=== PATIENT | male | born 1970 | race Caucasian/White ===

== ENCOUNTER 2024-04-06 17:01 | Emergency (ER) | payer MEDICAID, SELFPAY ==
[2024-04-06 17:02] VITALS: BMI 21.4
[2024-04-06 17:49] VITALS: BP 112/81; PULSE 84; RESP 18; TEMP 36.7; O2SAT 96
--- NOTE | 2024-04-06 18:17 | XR_ITS ---
Examination: PA lateral chest 2 views Technique: Upright PA lateral chest 2 views Exam date and time: April 06, 2024 1836 hrs. Indications: Coughing beginning 3 days ago. Findings: Normal heart size Mild accentuation basilar bronchovascular markings No lobar pneumonia Impression: Basilar bronchitis pattern
--- NOTE | 2024-04-06 18:18 | EDNOTE_ITS ---
<Statement entered by Daja Beth MD - 04/07/24 22:05> As co-signing physician, I was present and available for consult prn. I concur with the plan and care as documented by the midlevel provider. Upper Respiratory Inf. RME/HPI General Chief Complaint: Flu Like Symptoms Stated Complaint: PAIN ALL OVER BODY AND JOINTS X4D WITH VOMITING Time Seen by Provider: 04/06/24 17:47 Source: patient Arrival date/time: 04/06/24 17:01 54-year-old male with past medical history of deaf presents emergency department complaining of generalized bodyaches and cough that is been ongoing for 4 days. Patient reports was taken ibuprofen and help with symptoms but has ran out and is also requesting refill. casting cleaner was used. Mode of arrival: ambulatory Limitations: language barrier Related Data Previous Rx's ?Medication ?Instructions ?Recorded ibuprofen 800 mg tablet 800 mg PO TID PRN fever or pain 04/06/24 #30 tabs Allergies Allergy/AdvReac Type Severity Reaction Status Date / Time No Known Allergies Allergy Verified 04/06/24 17:05 Review of Systems Review of Systems Systems Reviewed: All systems reviewed, normal except as documented Constitutional Constitutional: Reports system reviewed and no additional complaints, except as documented, Reports body ache(s), Denies chills and Denies fever(s) Eyes Eyes: Reports system reviewed and no additional complaints, except as documented and Denies change in vision ENT Ears, Nose, Mouth, and Throat: Reports system reviewed and no additional complaints, except as documented, Denies disequilibrium, Denies dizziness, Denies sore throat and Denies vertigo Cardiovascular Cardiovascular: Reports system reviewed and no additional complaints, except as documented, Denies chest pain and Denies dyspnea Respiratory Respiratory: Reports system reviewed and no additional complaints, except as documented, Denies chest congestion, Reports cough and Denies dyspnea Gastrointestinal Gastrointestinal: Reports system reviewed and no additional complaints, except as documented, Denies abdominal pain, Denies nausea and Denies vomiting Musculoskeletal Musculoskeletal: Reports system reviewed and no additional complaints, except as documented, Denies abnormal gait and Denies arthralgias Integumentary/Breasts Skin/Breast: Reports system reviewed and no additional complaints, except as documented, Denies erythema, Denies rash and Denies wounds Neurologic Neurologic: Reports system reviewed and no additional complaints, except as documented, Denies abnormal gait, Denies disequilibrium, Denies dizziness and Denies vertigo Past Medical History Social History SMOKING STATUS: Unknown if ever smoked ED Exam General Limitations: Present language barrier General appearance: Present alert and in no apparent distress Head Head exam: Present atraumatic Eye Eye exam: Present normal appearance, PERRL and EOMI ENT ENT exam: Present normal exam, normal oropharynx and mucous membranes moist Neck Neck exam: Present normal inspection, full ROM and trachea midline Chest Chest inspection: Present normal inspection and symmetric chest wall rise Respiratory Respiratory exam: Present normal lung sounds bilaterally Cardiovascular Cardiovascular exam: Present regular rate, normal rhythm and normal heart sounds Abdominal Exam Abdominal exam: Present soft and normal bowel sounds Extremities Exam Extremities exam: Present normal inspection and full ROM Back Exam Back exam: Present normal inspection and full ROM Neurological Exam Neurological exam: Present alert, oriented X3 and CN II-XII intact Psychiatric Psychiatric exam: Present normal affect and normal mood Skin Skin exam: Present warm, dry, intact and normal color Course Quality Measures none Orders Category Date Time Status Bedside COVID-19 Antigen Test NOW Care 04/06/24 18:17 Completed Bedside Influenza A&B Antigen Test NOW Care 04/06/24 18:17 Completed XR chest 2V Stat Exams 04/06/24 18:17 Completed Strep A Rapid Stat Lab 04/06/24 18:21 Completed Ibuprofen Tab [Motrin Tab] Med 04/06/24 18:18 Discontinued 800 mg PO X1 ONE Vital Signs Vital signs: Vital Signs Temperature 98.0 F 04/06/24 17:49 Pulse Rate 84 04/06/24 17:49 Respiratory Rate 18 04/06/24 17:49 Blood Pressure 112/81 04/06/24 17:49 Pulse Oximetry (%) 96 04/06/24 17:49 Oxygen Delivery Method Room Air 04/06/24 17:49 96% room air within normal limits Upper Respiratory Infection MDM Narrative MDM Narrative:: 54-year-old male with past medical history of deaf presents emergency department complaining of generalized bodyaches and cough that is been ongoing for 4 days. Patient reports was taken ibuprofen and help with symptoms but has ran out and is also requesting refill. casting cleaner was used. Patient appears nontoxic and hemodynamically stable. No adventitious lung sounds on auscultation. Chest x-ray was negative for any pneumonic infiltrates. Patient discharged to follow-up with primary care provider and return to emergency department for any worsening symptoms or as needed. Patient data External records reviewed:: [facility] previous records Clinical information provided by:: patient Social determinants that could affect healthcare access:: none Patient has the following chronic illnesses:: See chart How is presenting disease/condition affected by chronic disease/condition?: uneffected by Evaluation data The following diagnostics were reviewed and interpreted by me:: radiology exam(s) Lab and/or radiology exams considered but not ordered:: Ordered Interpretation Summary: Interpreted by me Medications / Prescriptions Medications or Prescriptions considered but not ordered:: Ordered Medication administrations:: Medication Administration History Discontinued Medications Ibuprofen (Ibuprofen Tab 400 Mg Tablet) 800 mg PO X1 ONE Stop: 04/06/24 18:19 Last Admin: 04/06/24 18:57 Dose: 800 mg Documented By: Given Consultations Consultation(s) initiated? (list below): No Diagnosis Upper Respiratory Differential Diagnosis: upper respiratory infection, otitis media, sinusitis, viral infection, bronchitis, influenza and pharyngitis Most likely diagnosis given after review of the tests above:: Acute viral bronchitis Admission Indicated Admission indicated?: not indicated Admission Request Was there a request for admission?: No Disposition Plan Disposition Plan: Discharge Discharge Attestation Discharge Attestation: The patient and all family members were given an opportunity to ask questions and understood the discharge instructions. Discharge instructions specifically effects, indications for sooner follow up or return to the emergency department, and the expected course of current diagnosis. Patient condition: Stable Discharge Plan Plan Patient Disposition: HOME (Self Care) Disposition Comment: Stable Prescriptions/Referrals Prescriptions/Med Rec: New ibuprofen 800 mg tablet 800 mg PO TID PRN (Reason: fever or pain) Qty: 30 0RF Referrals: No Primary/Family,Physician [Primary Care Provider] - In 1 week Problem List Clinical Impression: Acute viral bronchitis Patient/Caregiver Discharge Instructions Discharge Activity: activity as tolerated Education Materials: ED Bronchitis, No Antibiotic (Adult) Additional Instructions: Take medication as prescribed. Follow-up with primary care provider in 2 to 3 days. Return to emergency department for any worsening symptoms or as needed. Print Language: Kinyarwanda Stand Alone Forms: Rosanna Award Info., Patient Portal Info Letter PA/JOSE CRUZ Supervising Physician PA/JOSE CRUZ Supervising Physician: Dr. Beth
[2024-04-06] MEDS: IBUPROFEN TAB 400 MG TABLET 800 MG PO (18:57)
[2024-04-06 18:59] LABS: Strep A Rapid Negative (Negative)
[2024-04-06 20:15] VITALS: RESP 18
== END 2024-04-06 20:17 | disposition home or self-care (01) ==
PROVIDERS: Emergency Provider Emergency Medicine
DX: J20.8 Acute bronchitis due to other specified organisms (principal); B97.89 Other viral agents as the cause of diseases classified elsewhere
CPT/HCPCS: 71046; 87400; 87651; 87811; 99283; A9270

== ENCOUNTER 2024-04-17 07:27 | Emergency (ER) | payer MEDICAID, SELFPAY ==
[2024-04-17] VITALS (127 sets, daily range): BP systolic 0–179; BP diastolic 0–151; PULSE 104–147; RESP 14–54; TEMP 34.4–36.7; O2SAT 21–100; BMI 22.0
--- NOTE | 2024-04-17 07:33 | PD.EDABDPN ---
ED Abdominal Pain RME/HPI General Chief Complaint: Abdominal Pain Stated complaint: ABDOMINAL PAIN Time seen by provider: 04/17/24 07:33 Arrival date/time: 04/17/24 07:27 RME / HPI RME / HPI narrative: This section includes all my notes and documentations, including HPI, PE, and ED course. Justin Bowens MD HPI: 54-year-old male here with severe abdominal pain. Obtaining detailed history is difficult because he is deaf. He reports diffuse pain for several days, severely worse today. With vomiting. No obvious fever. No other complaints. ROS: All negative except as documented in HPI. Physical Exam: General: Alert and oriented. In severe pain. Eyes: Conjunctivae and lids clear. ENT: No nasal congestion. Neck: Supple. Sinus tachycardia noted. Heart: RRR. Lungs: No respiratory distress. Good air movement. No rhonchi, wheezing, rales. Abdomen: Severe diffuse tenderness noted. Absent bowel sounds. Severe distention noted with rebound and guarding. Large vertical scars noted from previous surgeries. Large vertical laparotomy scarring noted. Skin: Warm and dry. Neuro: Alert and oriented X 3. I reviewed EMS notes. I reviewed all diagnostic test results. My interpretation of the EKG is sinus rhythm with nonspecific ST-T changes. My interpretation of the chest x-ray is no acute findings. My review of the abdominal CT report is: Abnormal small bowel loops, distended with air droplets in the bond of the small bowel loops and findings suspicious for pneumoperitoneum. Differential would include bowel obstruction, ischemic bowel, recommend surgical consultation. Blood tests and urine tests remarkable for WBC 20.7, Hgb 14.6, Cr 2.8, lactic acid 6.2, CRP 27.1, procalcitonin 8.31. At this point, diagnoses include pneumoperitoneum, SBO with obvious perforation, sepsis. I was asked by the nursing staff for central line placement due to IV access difficulty, see procedure note. Treatment here included IV fluid, Zosyn, Dilaudid, and Levophed. I discussed the case with our surgeon (Dr. Beckwith). About the presentation and exam and diagnostics and treatments here. And need of further care in the hospital. Declined to accept the patient. Recommended transfer to another facility, preferably where he had his previous abdominal surgeries. Our transfer nurse tried all day to find a facility to take care of the patient but unsuccessful during my watch. Couldn't find the facility that performed the patient's past abdominal surgeries. And most facilities declined to accept the transfer due to transfer being lateral transfer and not higher level transfer. I discussed the case with our surgeon (Dr. Beckwith) again. About the presentation and exam and diagnostics and treatments here. And need of further care here because other facilities are not accepting the patient for transfer. Patient will probably even with urgent abdominal surgery. But asked our surgeon to give him a chance. Declined to accept the patient again. At 6 PM on 04/17/24, the care of the patient was transferred to Dr. Beth (she will call Dr. Beckwith and ask him to perform emergent operation). At the time of transfer of care, patient is alert and oriented with no respiratory distress and significant improvement of pain. This entire documentation contains medications given (and diagnostics performed) after my watch, during Dr. Beth's shift. Justin Bowens MD Related Data Previous Rx's ?Medication ?Instructions ?Recorded ibuprofen 800 mg tablet 800 mg PO TID PRN fever or pain 04/06/24 #30 tabs Allergies Allergy/AdvReac Type Severity Reaction Status Date / Time No Known Allergies Allergy Verified 04/06/24 17:05 Course Quality Measures none Orders Category Date Time Status COVID-19 Screening Questionnaire NOW Care 04/17/24 11:[address] Screening NOW Care 04/17/24 07:35 Completed Decision to Admit X1 Care 04/17/24 11:33 Completed EKG (ED ONLY) *Do not use* NOW Care 04/17/24 07:46 Completed Emergency Titration Protocol Stat Care 04/17/24 16:32 Ordered Bello [Urinary Catheter] QS Care 04/17/24 18:00 Completed Insert NG / OG tube NOW Care 04/17/24 12:17 Completed Saline [Insert IV] NOW Care 04/17/24 07:35 Completed Straight [In and Out Catheter] X1 Care 04/17/24 10:16 Completed Transfuse,blood/blood products NOW Care 04/17/24 18:08 Completed Consult to General Surgery Stat Cons 04/17/24 11:23 Ordered Referral - Mass Spectrometry Specialist Stat Cons 04/17/24 11:[address] abdomen pelvis wo con Stat Exams 04/17/24 09:[address] abdomen pelvis wo con Stat Exams 04/17/24 21:17 Completed EKG (ED Only) Stat Exams 04/17/24 07:46 Draft XR chest 1V portable Stat Exams 04/17/24 23:08 Completed XR chest 1V post procedure Stat Exams 04/17/24 10:16 Completed Amylase Stat Lab 04/17/24 08:28 Completed Blood Culture (Lab) Stat Lab 04/17/24 10:40 Completed CBC Stat Lab 04/17/24 08:28 Completed CBC Stat Lab 04/17/24 21:28 Completed CMP [Comprehensive Metabolic Panel] Stat Lab 04/17/24 08:28 Completed CMP [Comprehensive Metabolic Panel] Stat Lab 04/17/24 21:28 Completed CRP [C-Reactive Protein] Stat Lab 04/17/24 11:03 Completed ESR [Sed Rate (ESR)] Stat Lab 04/17/24 11:03 Completed FFP [Fresh Frozen Plasma] Stat Lab 04/17/24 15:23 Completed Hemoglobin and Hematocrit Stat Lab 04/17/24 14:21 Completed Hemoglobin and Hematocrit Stat Lab 04/17/24 16:50 Completed Lactate (Lactic Acid) Stat Lab 04/17/24 11:03 Completed Lactate (Lactic Acid) Stat Lab 04/17/24 21:28 Completed Lactic Acid, 3 HR Stat Lab 04/17/24 14:21 Completed Lipase Stat Lab 04/17/24 08:28 Completed Magnesium Stat Lab 04/17/24 08:28 Completed Procalcitonin Stat Lab 04/17/24 11:03 Completed Procalcitonin Stat Lab 04/17/24 21:28 Completed Red Blood Cells Stat Lab 04/17/24 15:23 Completed Type and Screen Stat Lab 04/17/24 15:23 Completed UA [Urinalysis] Stat Lab 04/17/24 10:03 Completed Amiodarone Inj [Cordarone Inj] Med 04/18/24 00:46 Discontinued 300 mg IV .STK-MED ONE Calcium Chloride 10% Abboject Med 04/18/24 00:46 Discontinued 10 ml IV .STK-MED ONE Calcium Gluc/Ns 1000MG Ivpb [Calcium Gluc/Ns 1000mg Med 04/17/24 22:54 Discontinued Ivpb] 1,000 mg in 50 ml IV X1 Dextrose 10%-Water [D10w] 500 ml Med 04/17/24 22:00 Discontinued IV 500 mls/hr Dextrose 10%-Water [D10w] 500 ml Med 04/17/24 22:12 Discontinued IV 999 mls/hr Dextrose 50% Syr [D50w Syringe Abboject] Med 04/17/24 22:59 Discontinued 50 ml IV X1 ONE EPINEPHrine Inj Abboject Med 04/18/24 00:46 Discontinued 5 mg .ROUTE .STK-MED ONE Famotidine Inj [Pepcid Inj] Med 04/17/24 17:02 Discontinued 20 mg IVP X1 ONE HYDROmorphone INJ [Dilaudid Inj] Med 04/17/24 11:33 Discontinued 2 mg IM X1 ONE HYDROmorphone INJ [Dilaudid Inj] Med 04/17/24 16:10 Discontinued 2 mg IM X1 ONE HYDROmorphone INJ [Dilaudid Inj] Med 04/17/24 12:06 Discontinued 2 mg IVP X1 ONE Insulin Regular Med 04/17/24 22:59 Discontinued 5 unit IV X1 ONE Ketorolac Inj [Toradol Inj] Med 04/17/24 07:34 Discontinued 30 mg IVP X1 ONE LORazepam [Ativan Inj] Med 04/17/24 18:22 Discontinued 1 mg IVP X1 ONE Lidocaine 1% 20 ml [Xylocaine 1% 20 ML] Med 04/18/24 00:14 Discontinued 20 ml INFL X1 ONE Morphine Inj Med 04/17/24 07:34 Discontinued 6 mg IVP X1 ONE Norepinephrine/D5W 8mg/250ml [Levophed in D5W 8mg/250ml Med 04/17/24 11:33 Discontinued ] 8 mg in 250 ml IV .STK-MED Norepinephrine/D5W 8mg/250ml [Levophed in D5W 8mg/250ml Med 04/17/24 11:54 Discontinued ] 8 mg in 250 ml IV 0.05 mcg/kg/min Norepinephrine/NS 16mg/250ml [Levophed in NS 16mg/250ml Med 04/17/24 19:47 Discontinued ] 16 mg in 250 ml IV .STK-MED Norepinephrine/NS 16mg/250ml [Levophed in NS 16mg/250ml Med 04/17/24 10:07 Discontinued ] 16 mg in 250 ml IV 0.05 mcg/kg/min Norepinephrine/NS 16mg/250ml [Levophed in NS 16mg/250ml Med 04/17/24 19:51 Discontinued ] 16 mg in 250 ml IV 0.05 mcg/kg/min Octreotide Acet Inj [SandoSTATIN Inj] Med 04/17/24 17:03 Discontinued 50 mcg IV X1 ONE Ondansetron Inj [Zofran Inj] Med 04/17/24 07:34 Discontinued 4 mg IV X1 ONE Pantoprazole Inj [Protonix Inj] Med 04/17/24 17:02 Discontinued 80 mg IV X1 ONE Pantoprazole/Ns 80Mg IV Premix [Protonix/NS 80mg IV Med 04/17/24 21:14 Discontinued Premix] 80 mg in 100 ml IV X1 Piper/Tazo Inj [Zosyn Inj] 3.375 gm Med 04/17/24 10:08 Discontinued Sodium Chloride 0.9% (P) [Ns 0.9% (P)] 50 ml IV X1 Piper/Tazo Inj [Zosyn Inj] 3.375 gm Med 04/17/24 16:10 Discontinued Sodium Chloride 0.9% (P) [Ns 0.9% (P)] 50 ml IV X1 Sodium Bicarb 8.4% SYR Med 04/18/24 00:46 Discontinued 50 ml IV .STK-MED ONE Sodium Chloride 0.9% 1000 ml [Ns] 1,000 ml Med 04/17/24 10:08 Discontinued IV 999 mls/hr Sodium Chloride 0.9% 1000 ml [Ns] 1,000 ml Med 04/17/24 12:00 Discontinued IV 999 mls/hr Sodium Chloride 0.9% 1000 ml [Ns] 1,000 ml Med 04/17/24 12:05 Discontinued IV 999 mls/hr Sodium Chloride 0.9% 1000 ml [Ns] 1,000 ml Med 04/17/24 16:43 Discontinued IV 999 mls/hr Sodium Chloride 0.9% [Ns] 100 ml Med 04/17/24 17:03 Discontinued Octreotide Acet Inj [SandoSTATIN Inj] 1,000 mcg IV 50 mcg/hr Sodium Chloride 0.9% [Ns] 96 ml Med 04/17/24 18:12 Discontinued Phenylephrine HCl [Phenylephrine] 40 mg IV 0.5 mcg/kg/min Sodium Chloride 0.9% [Ns] 96 ml Med 04/17/24 18:15 Discontinued Phenylephrine HCl [Phenylephrine] 40 mg IV 0.5 mcg/kg/min fentaNYL INJ [Sublimaze Inj] Med 04/17/24 18:20 Discontinued 100 mcg IVP Q2HR PRN fentaNYL INJ [Sublimaze Inj] Med 04/17/24 18:20 Discontinued 100 mcg IVP X1 ONE Vital Signs Vital signs: Vital Signs Pulse Rate 147 H 04/17/24 07:44 Respiratory Rate 18 04/17/24 07:44 Blood Pressure 93/71 04/17/24 07:44 Pulse Oximetry (%) 97 04/17/24 07:44 Procedures -ED Central Line Placement Right IJ: Time Out Performed: Yes Patient Placed on Monitor/Pulse Ox: Yes Hand Hygiene: scrub, soap & water and alcohol-based hand rub Max Sterile Barrier Techniques used: cap, mask, sterile gown, sterile gloves and sterile full body drape Central Line Prep: Chlorhexidine scrub and sterile drapes applied Local Anesthetic: lidocaine 1% Amount of anesthesia used (mL): 5 Ultrasound Used for Placement: Yes Sterile Technique if Ultrasound used, including sterile gel: yes Central Line Lumen Inserted: triple Post Procedure: sutured in place, good blood return, all ports aspirated, flushed, capped and sterile dressing applied Post Procedure X-Ray: tip of catheter in good position and no pneumothorax seen Patient Tolerated Procedure: well and no complications Complications: none Additional Comments: A time out was performed. My hands were washed immediately prior to the procedure. I wore a surgical cap, mask with protective eyewear, full gown and sterile gloves throughout the procedure. The patient was placed in Trendelenburg position. RIGHT neck and chest region prepped using chlorhexidine scrub and draped in sterile fashion using a full drape and sterile probe cover and sterile gel employed. The medial and lateral heads of the sternocleidomastoid muscle were identified as was the carotid pulse. The Internal Jugular vein was identified using the ultrasound. Anesthesia was achieved over the vein using 1% lidocaine. Using real-time out of plane guidance, the introducer needle was inserted into the Internal Jugular vein under direct ultrasound visualization on first attempt. The introducer needle was inserted not more than 1 cm before venous blood was withdrawn. The syringe was removed and a guidewire was advanced into the introducer needle. The guidewire was visualized in the Internal Jugular Vein by ultrasound. A small incision was made at the skin surface with a scalpel and the introducer needle was exchanged for a dilator over the guidewire. After appropriate dilation was obtained, the dilator was exchanged over the wire for central venous catheter. The wire was removed and the catheter was sutured in place. A sterile sorbaview shield was placed over the catheter at the insertion site. The patient tolerated the procedure without any hemodynamic compromise. At time of procedure completion, all ports aspirated and flushed properly. Post-procedure chest x-ray showed no pneumothorax. Estimated blood loss is < 5 mL. Justin Bowens MD Abdominal Pain MDM Patient data External records reviewed:: [facility] previous records and EMS form Clinical information provided by:: patient and EMS Social determinants that could affect healthcare access:: none Patient has the following chronic illnesses:: History of abdominal laparotomy How is presenting disease/condition affected by chronic disease/condition?: exacerbated by Evaluation data The following diagnostics were reviewed and interpreted by me:: lab results, radiology exam(s) and EKG tracing(s) (My interpretation of the EKG is: Sinus tachycardia (142 bpm) with nonspecific ST-T changes and PVCs. Justin Bowens MD) Lab and/or radiology exams considered but not ordered:: none Interpretation Summary: Sepsis and SBO and Perforation Medications / Prescriptions Medications or Prescriptions considered but not ordered:: none Medication administrations:: Medication Administration History Discontinued Medications Amiodarone HCl (Amiodarone Inj 50 Mg/Ml Vial 3 Ml) 300 mg IV .STK-MED ONE Stop: 04/18/24 00:47 Calcium Chloride (Calcium Chloride 10% Inj 10 Ml Syrg) 10 ml IV .STK-MED ONE Stop: 04/18/24 00:47 Dextrose (Dextrose 50%-Water Inj 50 Ml Syringe) 50 ml IV X1 ONE Stop: 04/17/24 23:00 Last Admin: 04/17/24 23:07 Dose: 50 ml Documented By: TC Epinephrine HCl (Epinephrine Inj 0.1 Mg/Ml Syringe 10ml) 5 mg .ROUTE .STK-MED ONE Stop: 04/18/24 00:47 Famotidine (Famotidine Inj 10 Mg/Ml Vial 2 Ml) 20 mg IVP X1 ONE Stop: 04/17/24 17:03 Last Admin: 04/17/24 17:19 Dose: 20 mg Documented By: DO Fentanyl Citrate (Fentanyl Cit Inj 50 Mcg/Ml Amp 2ml) 100 mcg IVP X1 ONE Stop: 04/17/24 18:21 Last Admin: 04/17/24 18:30 Dose: 100 mcg Documented By: EF Fentanyl Citrate (Fentanyl Cit Inj 50 Mcg/Ml Amp 2ml) 100 mcg IVP Q2HR PRN PRN Reason: PAIN Stop: 04/22/24 19:59 Hydromorphone HCl (Hydromorphone Inj 2 Mg/Ml Vial) 2 mg IM X1 ONE Stop: 04/17/24 11:34 Last Admin: 04/17/24 12:07 Dose: Not Given Documented By: DO Non-Admin Reason: alternate route Hydromorphone HCl (Hydromorphone Inj 2 Mg/Ml Vial) 2 mg IVP X1 ONE Stop: 04/17/24 12:07 Last Admin: 04/17/24 12:11 Dose: 2 mg Documented By: EF Hydromorphone HCl (Hydromorphone Inj 2 Mg/Ml Vial) 2 mg IM X1 ONE Stop: 04/17/24 16:11 Last Admin: 04/17/24 18:21 Dose: Not Given Documented By: DO Non-Admin Reason: Cancelled by Provider Norepinephrine Bitartrate (Levophed In Ns 16mg/250ml) 16 mg in 250 mls @ 3.083 mls/hr IV .Q24H PRN; Protocol PRN Reason: PER protocol Stop: 05/17/24 10:06 Piperacillin Sod/Tazobactam (Sod 3.375 gm/ Sodium Chloride) 50 mls @ 100 mls/hr IV X1 ONE Stop: 04/17/24 10:37 Last Infusion: 04/17/24 12:02 Dose: Infused Documented By: Admin: 04/17/24 11:19 Dose: 100 mls/hr Documented By: EF Sodium Chloride (Ns) 1,000 mls @ 999 mls/hr IV .Q1H1M ONE Stop: 04/17/24 11:08 Last Infusion: 04/17/24 12:02 Dose: Infused Documented By: Admin: 04/17/24 11:19 Dose: 999 mls/hr Documented By: EF Norepinephrine/Dextrose (Levophed In D5w 8mg/250ml) Confirm Administered Dose 8 mg in 250 mls @ ud IV .STK-MED ONE Stop: 04/17/24 11:34 Last Admin: 12/12/24 12:03 Dose: Not Given Documented By: DO Non-Admin Reason: Duplicate Medication on eMAR Norepinephrine/Dextrose (Levophed In D5w 8mg/250ml) 8 mg in 250 mls @ 6.166 mls/hr IV .Q24H PRN; Protocol PRN Reason: PER PROTOCOL Stop: 05/17/24 11:53 Last Titration: 04/17/24 18:57 Dose: Infused Documented By: Admin: 04/17/24 18:16 Dose: 3 mcg/kg/min, 369.962 mls/hr Documented By: Titration: 04/17/24 18:06 Dose: Infused Documented By: Admin: 04/17/24 17:25 Dose: 3 mcg/kg/min, 369.962 mls/hr Documented By: Titration: 04/17/24 17:25 Dose: Infused Documented By: Titration: 04/17/24 16:52 Dose: 3 mcg/kg/min, 369.962 mls/hr Documented By: Titration: 04/17/24 16:47 Dose: 2 mcg/kg/min, 246.641 mls/hr Documented By: Titration: 04/17/24 16:42 Dose: 1 mcg/kg/min, 123.321 mls/hr Documented By: Titration: 04/17/24 16:37 Dose: 0.32 mcg/kg/min, 39.463 mls/hr Documented By: Titration: 04/17/24 16:32 Dose: 0.3 mcg/kg/min, 36.996 mls/hr Documented By: Titration: 04/17/24 16:27 Dose: 0.15 mcg/kg/min, 18.498 mls/hr Documented By: Titration: 04/17/24 16:22 Dose: 0.13 mcg/kg/min, 16.032 mls/hr Documented By: Titration: 04/17/24 16:17 Dose: 0.11 mcg/kg/min, 13.565 mls/hr Documented By: Titration: 04/17/24 15:58 Dose: 0.09 mcg/kg/min, 11.099 mls/hr Documented By: Titration: 04/17/24 15:50 Dose: 0.07 mcg/kg/min, 8.632 mls/hr Documented By: Admin: 04/17/24 15:33 Dose: 0.05 mcg/kg/min, 6.166 mls/hr Documented By: EF Sodium Chloride (Ns) 1,000 mls @ 999 mls/hr IV .Q1H1M ONE Stop: 04/17/24 13:00 Last Infusion: 04/17/24 13:11 Dose: Infused Documented By: Admin: 04/17/24 12:09 Dose: 999 mls/hr Documented By: EF Sodium Chloride (Ns) 1,000 mls @ 999 mls/hr IV .Q1H1M ONE Stop: 04/17/24 13:05 Last Infusion: 04/17/24 13:11 Dose: Infused Documented By: Admin: 04/17/24 12:13 Dose: 999 mls/hr Documented By: EF Piperacillin Sod/Tazobactam (Sod 3.375 gm/ Sodium Chloride) 50 mls @ 100 mls/hr IV X1 ONE Stop: 04/17/24 16:39 Last Infusion: 04/17/24 19:43 Dose: Infused Documented By: Admin: 04/17/24 18:31 Dose: 100 mls/hr Documented By: EF Sodium Chloride (Ns) 1,000 mls @ 999 mls/hr IV .Q1H1M ONE Stop: 04/17/24 17:43 Last Infusion: 04/17/24 19:43 Dose: Infused Documented By: Admin: 04/17/24 16:55 Dose: 999 mls/hr Documented By: EF Octreotide Acetate 1,000 mcg/ (Sodium Chloride) 102 mls @ 5.1 mls/hr IV .Q20H ONE; Protocol Stop: 04/18/24 13:02 Last Admin: 04/17/24 17:31 Dose: 50 mcg/hr, 5.1 mls/hr Documented By: EF Phenylephrine HCl 40 mg/ (Sodium Chloride) 100 mls @ 4.933 mls/hr IV .[id number] PRN; Protocol PRN Reason: Per Sepsis Protocol Stop: 05/17/24 18:11 Phenylephrine HCl 40 mg/ (Sodium Chloride) 100 mls @ 4.933 mls/hr IV .[id number] PRN; Protocol PRN Reason: Per Sepsis Protocol Stop: 05/17/24 18:14 Norepinephrine Bitartrate (Levophed In Ns 16mg/250ml) 16 mg in 250 mls @ 3.083 mls/hr IV .Q24H PRN; Protocol PRN Reason: PER PROTOCOL Stop: 05/17/24 19:50 Last Titration: 04/18/24 01:04 Dose: Infused Documented By: Titration: 04/17/24 21:13 Dose: 0.5 mcg/kg/min, 30.83 mls/hr Documented By: Admin: 04/17/24 19:00 Dose: 1 mcg/kg/min, 61.66 mls/hr Documented By: NGOC Norepinephrine Bitartrate (Levophed In Ns 16mg/250ml) Confirm Administered Dose 16 mg in 250 mls @ ud IV .STK-MED ONE Stop: 04/17/24 19:48 Last Admin: 04/17/24 20:24 Dose: Not Given Documented By: TC Non-Admin Reason: Duplicate Medication on eMAR Pantoprazole Sodium (Protonix/Ns 80mg Iv Premix) 80 mg in 100 mls @ 10 mls/hr IV X1 ONE Stop: 04/18/24 07:13 Last Admin: 04/17/24 21:35 Dose: 10 mls/hr Documented By: NGOC Dextrose (D10w) 500 mls @ 500 mls/hr IV .Q1H JOHN Stop: 05/17/24 21:59 Last Admin: 04/17/24 22:35 Dose: Not Given Documented By: TC Non-Admin Reason: Duplicate Medication on eMAR Dextrose (D10w) 500 mls @ 999 mls/hr IV .Q31M ONE Stop: 04/17/24 22:42 Last Infusion: 04/17/24 22:37 Dose: Infused Documented By: NGOC Co-signed By: LUCINA Admin: 04/17/24 22:00 Dose: 999 mls/hr Documented By: NGOC Co-signed By: LUCINA Calcium Gluconate/Sodium Chloride (Calcium Gluc/Ns 1000mg Ivpb) 1,000 mg in 50 mls @ 50 mls/hr IV X1 ONE Stop: 04/17/24 23:53 Last Infusion: 04/18/24 00:22 Dose: Infused Documented By: Admin: 04/17/24 23:20 Dose: 50 mls/hr Documented By: TC Insulin Human Regular (Insulin Hum Regular 1 Unit/0.01 Ml (Per Unit)) 5 unit IV X1 ONE Stop: 04/17/24 23:00 Last Admin: 04/17/24 23:07 Dose: 5 unit Documented By: TC Co-signed By: KD Ketorolac Tromethamine (Ketorolac Inj 30 Mg/Ml Vial) 30 mg IVP X1 ONE Stop: 04/17/24 07:35 Last Admin: 04/17/24 08:48 Dose: 30 mg Documented By: EF Lidocaine HCl (Lidocaine Hcl 1% 20 Ml Vial) 20 ml INFL X1 ONE Stop: 04/18/24 00:15 Last Admin: 04/18/24 00:22 Dose: 20 ml Documented By: TC Lorazepam (Lorazepam 2 Mg/Ml Vial) 1 mg IVP X1 ONE Stop: 04/17/24 18:23 Last Admin: 04/17/24 18:51 Dose: 1 mg Documented By: EF Morphine Sulfate (Morphine Sulf Inj 10 Mg/Ml Vial) 6 mg IVP X1 ONE Stop: 04/17/24 07:35 Last Admin: 04/17/24 08:48 Dose: 6 mg Documented By: EF Octreotide Acetate (Octreotide Acet Inj 50 Mcg/Ml Vial) 50 mcg IV X1 ONE Stop: 04/17/24 17:04 Last Admin: 04/17/24 17:22 Dose: 50 mcg Documented By: DO Ondansetron HCl (Ondansetron Inj 2 Mg/Ml Inj 2 Ml) 4 mg IV X1 ONE; Protocol Stop: 04/17/24 07:35 Last Admin: 04/17/24 08:47 Dose: 4 mg Documented By: EF Pantoprazole Sodium (Pantoprazole Inj 40 Mg Vial) 80 mg IV X1 ONE Stop: 04/17/24 17:03 Last Admin: 04/17/24 17:19 Dose: 80 mg Documented By: DO Sodium Bicarbonate (Sodium Bicarb Inj 8.4% Syr 50 Ml Syringe) 50 ml IV .STK-MED ONE Stop: 04/18/24 00:47 IVF and Zofran and Dilaudid and Zosyn and Levophed Consultations Consultation(s) initiated? (list below): Yes Consultation #1 (Physician, Specialty, Details): Surgery (Dr. Beckwith) twice Diagnosis Differential diagnosis abdominal pain: acute appendicitis, calculus of kidney, constipation, diverticulitis, gastroenteritis, pancreatitis, small bowel obstruction and other (perforation, sepsis ) Most likely diagnosis given after review of the tests above:: SBO with perforation and sepsis Admission Indicated Admission indicated?: indicated Explain why admission is indicated or not indicated:: Dr. Beckwith declined to treat the patient here and recommended transfer Admission Request Was there a request for admission?: No Disposition Plan Disposition Plan: other (specify) (care of the patient transferred to Dr. Beth) Critical Care Time Critical Care Time Critical Care Time: Yes Total Critical Care Time (min.): 42 Attestation: Due to a high probability of clinically significant, life threatening deterioration, the patient required my highest level of preparedness to intervene emergently and I personally spent this critical care time directly and personally managing the patient. This critical care time included obtaining a history; examining the patient; ordering and review of studies; arranging urgent treatment with development of a management plan; evaluation of patient's response to treatment; frequent reassessment; and discussions with family and other providers. It was exclusive of separately billable procedures and treating other patients and teaching time. Justin Bowens MD Discharge Plan Plan Patient Disposition: Prescriptions/Referrals Referrals: No Primary/Family,Physician [Primary Care Provider] - In 1 week Problem List Clinical Impression: Bowel perforation, SBO (small bowel obstruction), Sepsis Patient/Caregiver Discharge Instructions Print Language: [place]
--- NOTE | 2024-04-17 07:46 | EKG_ITS ---
[facility] Test Date: 2024-04-17 Pat Name: JENS MARTINEZ Department: Room: - Gender: Male [employer]: : 1970 Requested By: Justin Tejeda Order Number: [id number] Reading MD: Justin Tejeda Measurements Intervals [place] Rate: 142 P: 71 FL: 142 QRS: 58 QRSD: 86 T: 78 QT: 328 QTc: 504 Interpretive Statements SINUS TACHYCARDIA WITH OCCASIONAL VENTRICULAR PREMATURE COMPLEXES, POSSIBLE ATRIAL FLUTTER NONSPECIFIC T-WAVE ABNORMALITY ABNORMAL RHYTHM ECG No previous ECG available for comparison /[id number]/S0/[id number]
[2024-04-17 08:43] LABS: Basophils # (Auto) 0.1 Thou/mm3 (0.0-0.2); Basophils % (Auto) 0 % (0-2.5); Eosinophils # (Auto) 0.1 Thou/mm3 (0.0-0.5); Eosinophils % (Auto) 0 % (0-10); Hematocrit 43.6 % (41.0-53.0); Hemoglobin 14.6 g/dL (13.5-16.0); Immature Granulocytes % (Auto) 0 % (0-0); Immature Granulocytes Auto 0.08 Thou/mm3 (0.00-0.00); Lymphocytes # (Auto) 0.7 Thou/mm3 (1.0-4.8); Lymphocytes % (Auto) 4 % (10-50); Mean Corpuscular HGB Conc 33.5 g/dl (31.0-37.0); Mean Corpuscular Hemoglobin 31.1 pg (25.0-35.0); Mean Corpuscular Volume 93 fL (80-100); Monocytes % (Auto) 5 % (0-12); Neutrophils # (Auto) 18.8 Thou/mm3 (1.8-7.7); Neutrophils % (Auto) 91 % (37-80); Nucleated Red Blood Cell % 0 /100 WBC (0); Platelet Count 375 Thou/mm3 (140-440); RDW Standard Deviation 47.5 fL (35.1-43.9); White Blood Count 20.7 Thou/mm3 (3.8-10.6)
[2024-04-17] MEDS: ONDANSETRON INJ 2 MG/ML INJ 2 ML 4 MG IV (08:47)
[2024-04-17] MEDS: MORPHINE SULF INJ 10 MG/ML VIAL 6 MG IVP (08:48)
[2024-04-17] MEDS: KETOROLAC INJ 30 MG/ML VIAL IVP (08:48)
[2024-04-17 09:18] LABS: Alanine Aminotransferase 9 U/L (10-49); Albumin, Serum 4.4 gm/dL (3.5-5.0); Albumin/Globulin Ratio 1.8 (1.2-2.2); Alkaline Phosphatase 57 U/L (46-116); Amylase 340 U/L (30-118); Anion Gap 18 (7-16); Aspartate Amino Transferase 13 U/L (0-34); BUN/Creatinine Ratio 23 Ratio (12-20); Bilirubin,Total 1.1 mg/dL (0.3-1.2); Blood Urea Nitrogen 65 mg/dL (9-23); Calcium 9.5 mg/dL (8.3-10.6); Calcium (Corrected) 9.5 mg/dL (8.5-10.1); Carbon Dioxide 19.1 mMol/L (20.0-31.0); Chloride 95 mMol/L (98-107); Creatinine (Component) 2.8 mg/dL (0.6-1.3); Estimated Creatinine Clearance 28.4 mL/min (>60); Globulin 2.4 gm/dL (2.3-3.5); Glucose 244 mg/dL (74-106); Lipase 26 U/L (12-53); Magnesium 1.7 mg/dL (1.6-2.6); Osmolality,Calculated 291 (275-295); Sodium 132 mMol/L (136-145); Total Protein 6.8 gm/dL (5.7-8.2); eGFR 26 See Note
--- NOTE | 2024-04-17 09:43 | XR_ITS ---
Examination: CT abdomen and pelvis without contrast. Coronal 3-D reconstructions. Sagittal 2-D reconstructions. Date and time of exam:April 17, 2024 at 0949 hours INDICATIONS: Onset severe abdominal pain today CTDI: vol (mGy): 5.47 DLP: (mGycm): 341 Technique: Axial images of the abdomen have been obtained, 3 mm slice thickness Intravenous contrast material has not been administered. Low dose protocols were performed. One or more of the following dose reduction techniques were used; automated exposure control, adjustment of the mA and/or KV according to patient size, use of iterative reconstruction technique. Findings: No focal liver or splenic lesions No gallstones No pancreatic mass Prominently fluid distended and air distended small bowel loops with multiple air droplets suspicious for pneumoperitoneum Numerous air droplets are present in the wall of small bowel loops Localized weakening of the lower anterior abdominal wall No hydronephrosis Mild free fluid in the pelvis Mild prostatomegaly Urinary bladder intact Moderate osteopenia IMPRESSION: Abnormal small bowel loops, distended with air droplets in the bond of the small bowel loops and findings suspicious for pneumoperitoneum Differential would include bowel obstruction, ischemic bowel, recommend surgical consultation
--- NOTE | 2024-04-17 09:57 | PC.NURSE ---
pt back from ct
--- NOTE | 2024-04-17 10:16 | XR_ITS ---
Examination: AP chest single view TECHNIQUE: AP portable supine chest single view Exam date and time: April 17, 2024 1111 hours Comparison April 06, 2024 INDICATIONS: Post central line placement FINDINGS: Right internal jugular central line tip right atrium Normal heart size On this study suspicious for mild pneumonia left base Prominent osteopenia No pneumothorax IMPRESSION: Consider retracting the central line 3 cm
[2024-04-17 10:22] LABS: Collection Type, Urine Clean Catch
[2024-04-17 10:29] LABS: Bilirubin,Urine 1+ (Negative); Blood,Urine Negative (Negative); Color,Urine Yellow (Lt Yel-Yel); Glucose, Urine 1+ (Negative); Ketones,Urine 1+ (Negative); Leukocyte Esterase,Urine Negative (Negative); Nitrite,Urine Negative (Negative); Protein,Urine 2+ (Neg - Trace); RBC,Urine 4 /hpf (0-3); Squamous Epithelial Cell,Urine < 1 /hpf (0-5); WBC,Urine < 1 /hpf (0-5)
[2024-04-17 10:44] LABS: Clarity,Urine Hazy (Clear/Hazy)
--- NOTE | 2024-04-17 10:50 | PC.NURSE ---
pt moved to room 3 at this time.
[2024-04-17 11:12] LABS: Lactate (Lactic Acid) 6.2 mMol/L (0.4-2.0)
[2024-04-17] MEDS: PIPER/TAZO INJ 3.375 GM in SODIUM CHLORIDE 0.9% (P) 50 ML IV ×2 (11:19→18:31)
[2024-04-17] MEDS: SODIUM CHLORIDE 0.9% 1000 ML 1,000 ML 999 ML IV ×4 (11:19→16:55)
[2024-04-17 11:25] LABS: Sed Rate (ESR) 33 mm/hr (0-20)
[2024-04-17 11:35] LABS: C-Reactive Protein 27.1 mg/dL (0.0-0.9); Procalcitonin 8.31 ng/ml (0.0-0.49)
--- NOTE | 2024-04-17 11:45 | ESCONSULT_ITS ---
HPI Consult details Consult date: 04/17/24 Reason for consultation narrative: Small bowel obstruction with possible pneumoperitoneum History of present illness: I was asked by the emergency department physician to evaluate the patient based on his CT scan report. Patient is poor historian with history of deafness. Apparently he presented to the emergency department with worsening abdominal pain. Patient cannot give history of how long he has had pain or if he has had nausea or vomiting or when his last bowel movement was. A CT scan was obtained that revealed dilated loops of small bowel with air droplets. Meds Home Medications and Allergies Allergies Allergy/AdvReac Type Severity Reaction Status Date / Time No Known Allergies Allergy Verified 04/06/24 17:05 Exam Vital Signs Temp Pulse Resp BP Pulse Ox O2 Del Method 98 F 129 H 18 92/71 98 Room Air 04/17/24 07:45 04/17/24 11:15 04/17/24 11:15 04/17/24 11:15 04/17/24 11:15 04/17/24 09:47 Constitutional Constitutional: chronically ill appearing Routine Abdominal Exam Comments: Abdomen is soft with tender to palpation, no diffuse peritonitis at this time. He has large laparotomy incision with wide scarring that is consistent with secondary closure of his abdominal wound. Infraumbilically patient does not appear to have any fascia but appears to have a large incisional hernia defect Results Results: Laboratory Laboratory results: results reviewed Results: Imaging Imaging narrative: CT scan of abdomen pelvis images reviewed Assessment & Plan Problem List (1) Intestinal adhesions [bands], unspecified as to partial versus complete obstruction: Status: Acute Plan Patient has a very complicated abdomen and will need to be transferred to higher level of care. CT scan revealed multiple areas intestinal stapling from previous operations. He has a large scar that appears to have been from secondary wound closure, does not appear to have lower abdominal wall fascia. He will significantly benefit from transferring to higher level of care as ca ring his patient is beyond the scope of my practice.
--- NOTE | 2024-04-17 11:54 | PC.CM ---
Addendum entered by Justine Sewell RN 04/17/24 19:23: I handed packet to ED charge nurse and I let her know patient was declined by [facility] and [facility] due to capacity. [facility] states patient needs higher level care than they can offer. Addendum entered by Justine Sewell RN 04/17/24 18:58: I contacted [facility] and I presented patient to Shasha transfer nurse. She states I can send over information but they are at capacity so they declined patient. I did fax over information. Addendum entered by Justine Sewell RN 04/17/24 18:28: 1730 I received a call back from [facility]. They declined patient stating patient needs a higher level tertiary center bacause they are not able t manage at their facility. 1700 Patient was declined by [facility] due to capacity. Addendum entered by Justine Sewell RN 04/17/24 16:49: I went ahead and sent a referral to [facility] and to [facility]. I spoke to [facility] earlier today and I initiated a transfer. Dr. Bowens called me stating patient was getting worse and he wants me to try other closer facilities because patient is declining. I called [facility] back to see where they were with the referral and to let them know patient is getting worse. Transfer nurse took my information and she states she would try to have a nurse call and speak to our doctor. Addendum entered by Justine Sewell RN 04/17/24 13:17: 1300 I spoke to the clearing supervisor Wilbert at [facility] in [facility]. Wilbert asked me to contact the main [facility] center number to initiate a transfer. I will contact [facility]. 1230 I contacted [facility] and I spoke transfer nurse Darren. He looked up patient and he states they have seen this patient but they only did wound care and not surgery. She was able to find patient in [facility] and he states patient had surgery with a Dr. [facility] back in 2018. I called the number that was provided to me by Darren [phone]. Original Note: I received a referral to transfer patient for general surgery. Dr. Beckwith consulted and he states patient is needing higher level care. Charge nurse stats patient has been seen at [facility] and had surgery at that facility.
--- NOTE | 2024-04-17 12:02 | PC.CC ---
Patient is a 54 year-old who presents to the hospital for abdominal pain. 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 Aliya SHAW made [id number] contact with patient. ASW introduced self, role, and reason for visit. Patient appeared alert and oriented to self, location, and situation. Patient was pleasant and engaged in initial assessment. Patient reports he lives in [place] and was in [place] visiting his son, Kian Jovel . Patient resides at home with a roomate. Prior to being admitted to the hospital the patient was able to ambulate independently and complete his own ADLs. Patient receives primary care by Dr. Painting. The patient named his son, Kian Jovel as his next of Kin. Upon discharge the patient plans to return back home to [place]. 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
[2024-04-17] MEDS: HYDROmorphone INJ 2 MG/ML VIAL IVP (12:11)
--- NOTE | 2024-04-17 12:35 | PC.NURSE ---
dr bettencourt made aware of blood tinged colored gastric content no new orders recieved
--- NOTE | 2024-04-17 13:59 | PC.NURSE ---
PARDEEP MARTINEZ [phone]
[2024-04-17 14:05] LABS: Reflex Lactate? Y
[2024-04-17 14:32] LABS: Hematocrit 37.1 % (41.0-53.0); Hemoglobin 12.3 g/dL (13.5-16.0)
--- NOTE | 2024-04-17 14:48 | PC.NURSE ---
OG CANISTER CHANGED AT THIS TIME. 825ML DARK RED DRAINAGE NOTED AND REPORTED TO DR HWANG
[2024-04-17 14:54] LABS: Lactic Acid, 3 HR 5.8 mMol/L (0.4-2.0)
[2024-04-17] MEDS: Norepinephrine/D5W 8mg/250ml 8 MG/250 ML BAG 6.166 MG IV (15:33)
[2024-04-17 17:02] LABS: Hematocrit 38.7 % (41.0-53.0); Hemoglobin 12.7 g/dL (13.5-16.0)
[2024-04-17] MEDS: PANTOPRAZOLE INJ 40 MG VIAL 80 MG IV (17:19)
[2024-04-17] MEDS: FAMOTIDINE INJ 10 MG/ML VIAL 2 ML 20 MG IVP (17:19)
[2024-04-17] MEDS: OCTREOTIDE ACET INJ 50 mCg/ML VIAL IV (17:22)
[2024-04-17] MEDS: Norepinephrine/D5W 8mg/250ml 8 MG/250 ML BAG 369.962 MG IV ×2 (17:25→18:16)
[2024-04-17] MEDS: OCTREOTIDE ACET INJ 1,000 MCG in SODIUM CHLORIDE 0.9% 100 ML 5.1 MCG IV (17:31)
--- NOTE | 2024-04-17 18:05 | PC.NURSE ---
spoke with pharmacist Justin. per pharmacist do not increase levophed to 10 mcg, ask dr for another medication to help with increasing blood pressure
--- NOTE | 2024-04-17 18:18 | PC.NURSE ---
pt unable to stay still in bed due to pain. dr parker at bedside. new orders received
--- NOTE | 2024-04-17 18:22 | PC.NURSE ---
informed dr bettencourt that we are unable to obtain bp. per dr bettencourt continue to increase levophed
--- NOTE | 2024-04-17 18:28 | EDNOTE_ITS ---
Emergency Room Addendum <Huma Singh - Last Filed: 04/17/24 22:10> Addendum Narrative: 1800: Care assumed from Dr. Bowens, the previous shift emergency physician. Past medical, surgical, social and family history reviewed. Vitals and home medications reviewed. I will assume the care of the patient at this time, pending transfer. Please refer to the emergency department record for history and examination from initial visit.? Physical exam by me shows patient tachycardic at 114 and tachypneic. Sepsis alert called earlier at 1013 hours. 1820: Starting phenylephrine, ordeing blood work, Fentanyl, Ativan. Ordered ffp. CRITICAL CARE: TIME: 30 minutes. The high probability of sudden, clinically significant deterioration in the patient?s condition required the highest level of my preparedness to intervene urgently. The services I provided to this patient were to treat and/or prevent clinically significant deterioration. Services included the following: chart data review, reviewing nursing notes and/or old charts, documentation time, field sales consultant collaboration regarding findings and treatment options, medication orders and management, direct patient care, vital sign assessments and ordering, interpreting and reviewing diagnostic studies and lab tests. Aggregate critical care time includes only time during which I was engaged in work directly related to the patient?s care, as described above, whether at bedside or elsewhere in the Emergency Department. It did not include time spent performing other reported procedures or the services of residents, students, nurses or physician assistants. <Chris Gaines - Last Filed: 04/18/24 01:31> Addendum Narrative: 1800: Care assumed from Dr. Bowens, the previous shift emergency physician. Past medical, surgical, social and family history reviewed. Vitals and home medications reviewed. I will assume the care of the patient at this time, pending transfer. Please refer to the emergency department record for history and examination from initial visit.? Physical exam by me shows patient tachycardic at 114 and tachypneic. Sepsis alert called earlier at 1013 hours. 1820: Starting phenylephrine, ordering blood work, Fentanyl, Ativan. Ordered ffp. 0046: Patient found to be unresponsive and code blue was immediately initiated. 0104: Despite our best efforts, patient . CRITICAL CARE: TIME: 45 minutes. The high probability of sudden, clinically significant deterioration in the patient?s condition required the highest level of my preparedness to intervene urgently. The services I provided to this patient were to treat and/or prevent clinically significant deterioration. Services included the following: chart data review, reviewing nursing notes and/or old charts, documentation time, field sales consultant collaboration regarding findings and treatment options, medication orders and management, direct patient care, vital sign assessments and ordering, interpreting and reviewing diagnostic studies and lab tests. Aggregate critical care time includes only time during which I was engaged in wo rk directly related to the patient?s care, as described above, whether at bedside or elsewhere in the Emergency Department. It did not include time spent performing other reported procedures or the services of residents, students, nurses or physician assistants. <Daja Beth MD - Last Filed: 04/30/24 13:16> Addendum Narrative: 1800: Care assumed from Dr. Bowens, the previous shift emergency physician. Past medical, surgical, social and family history reviewed. Vitals and home medications reviewed. I will assume the care of the patient at this time, pending transfer. Please refer to the emergency department record for history and examination from initial visit.? Physical exam by me shows patient tachycardic at 114 and tachypneic. Sepsis alert called earlier at 1013 hours. 1820: Starting phenylephrine, ordering blood work, Fentanyl, Ativan. Ordered ffp. Patient tachypneic. Pursed lip breathing. Recieved call CXR shows pneumothorax. 0046: Patient found to be unresponsive and code blue was immediately initiated. Procedure needle decompression right chest: Indication: respiratory distress, pneumothorax Anterior chest wall sterile prep with chlorhexadine. 14 gauge, 5.25 inch needle placed 3.5 inches into second intercostal space, midclavicular line. Wang of air. 0104: Despite our best efforts, patient . CRITICAL CARE: TIME: 45 minutes. The high probability of sudden, clinically significant deterioration in the patient?s condition required the highest level of my preparedness to intervene urgently. The services I provided to this patient were to treat and/or prevent clinically significant deterioration. Services included the following: chart data review, reviewing nursing notes and/or old charts, documentation time, field sales consultant collaboration regarding findings and treatment options, medication orders and management, direct patient care, vital sign assessments and ordering, interpreting and reviewing diagnostic studies and lab tests. Aggregate critical care time includes only time during which I was engaged in work directly related to the patient?s care, as described above, whether at bedside or elsewhere in the Emergency Department. It did not include time spent performing other reported procedures or the services of residents, students, nurses or physician assistants.
[2024-04-17] MEDS: fentaNYL CIT INJ 50 mCg/ML AMP 2ML 100 MCG IVP (18:30)
--- NOTE | 2024-04-17 18:32 | PC.NURSE ---
unable to obtain bp by manual or concaving machine operator. hr 135. pt is anxious and c/o pain to back. dr bettencourt informed. dr bettencourt in room to see pt
--- NOTE | 2024-04-17 18:42 | PC.NURSE ---
informed dr bettencourt that we are still unable to obtain bp. pt very anxious and c/o pain. unable to give Dilaudid due to low bp. per dr bettencourt increase levophed to max dose. informed dr bettencourt that we will increase up to 1 mcg/kg/min and in five min up to 2 mcg/kg/min them after five min up to max dose fo 3 mcg/kg/min. okay per dr bettencourt
[2024-04-17] MEDS: LORazepam 2 MG/ML VIAL 1 MG IVP (18:51)
[2024-04-17] MEDS: Norepinephrine/NS 16mg/250ml 16 MG/250 ML BAG 61.66 MG IV (19:00)
--- NOTE | 2024-04-17 19:15 | PC.NURSE ---
attempted to call son and update them on patients condition phone call went straight to voicemail.
--- NOTE | 2024-04-17 21:17 | XR_ITS ---
Examination: CT abdomen and pelvis without contrast. Coronal 3-D reconstructions. Sagittal 2-D reconstructions. Date and time of exam:April 17, 2024 1009 hrs. Comparison April 17, 2024 0952 hrs. CTDI: vol (mGy): 4.81 DLP: (mGycm): 309 Technique: Axial images of the abdomen have been obtained, 3 mm slice thickness Intravenous contrast material has not been administered. Low dose protocols were performed. One or more of the following dose reduction techniques were used; automated exposure control, adjustment of the mA and/or KV according to patient size, use of iterative reconstruction technique. Findings: Large right pneumothorax Pneumonia right base with small effusions No focal liver or splenic lesions Interval much larger pneumoperitoneum, again with fluid distended small bowel loops with air in the loops of small bowel No hydronephrosis Aorta normal size Urinary Bello catheter with bladder contracted around a catheter Mild prostatomegaly Mild free fluid in the pelvis Impression: Partly visualized large right pneumothorax Interval much more prominent pneumoperitoneum with again noted abnormal small bowel loops described on the prior study
[2024-04-17] MEDS: PANTOPRAZOLE/NS 80MG IV PREMIX 80 MG/100 ML BAG 10 MG IV (21:35)
[2024-04-17 21:49] LABS: Lactate (Lactic Acid) 12.8 mMol/L (0.4-2.0)
[2024-04-17] MEDS: DEXTROSE 10%-WATER 500 ML 999 ML IV (22:00)
[2024-04-17 22:04] LABS: Basophils # (Auto) 0.1 Thou/mm3 (0.0-0.2); Basophils % (Auto) 1 % (0-2.5); Eosinophils % (Auto) 0 % (0-10); Hematocrit 39.2 % (41.0-53.0); Hemoglobin 12.3 g/dL (13.5-16.0); Immature Granulocytes % (Auto) 3 % (0-0); Immature Granulocytes Auto 0.36 Thou/mm3 (0.00-0.00); Lymphocytes # (Auto) 1.3 Thou/mm3 (1.0-4.8); Lymphocytes % (Auto) 9 % (10-50); Mean Corpuscular HGB Conc 31.4 g/dl (31.0-37.0); Mean Corpuscular Hemoglobin 29.4 pg (25.0-35.0); Mean Corpuscular Volume 94 fL (80-100); Monocytes # (Auto) 0.8 Thou/mm3 (0.0-0.8); Monocytes % (Auto) 6 % (0-12); Neutrophils # (Auto) 11.6 Thou/mm3 (1.8-7.7); Neutrophils % (Auto) 82 % (37-80); Nucleated Red Blood Cell % 0 /100 WBC (0); Platelet Count 210 Thou/mm3 (140-440); RDW Standard Deviation 56.6 fL (35.1-43.9); Red Blood Count 4.19 Miln/mm3 (4.50-5.90); White Blood Count 14.2 Thou/mm3 (3.8-10.6)
[2024-04-17 22:25] LABS: Alanine Aminotransferase 589 U/L (10-49); Albumin/Globulin Ratio 1.5 (1.2-2.2); Alkaline Phosphatase 88 U/L (46-116); Anion Gap 22 (7-16); Aspartate Amino Transferase 709 U/L (0-34); BUN/Creatinine Ratio 23 Ratio (12-20); Blood Urea Nitrogen 70 mg/dL (9-23); Calcium 7.5 mg/dL (8.3-10.6); Calcium (Corrected) 8.3 mg/dL (8.5-10.1); Chloride 105 mMol/L (98-107); Estimated Creatinine Clearance 26.5 mL/min (>60); Glucose 76 mg/dL (74-106); Osmolality,Calculated 293 (275-295); Procalcitonin 6.55 ng/ml (0.0-0.49); Sodium 137 mMol/L (136-145); eGFR 24 See Note
[2024-04-17 22:32] LABS: Carbon Dioxide < 10.0 mMol/L (20.0-31.0); Potassium 6.4 mMol/L (3.4-5.1)
[2024-04-17] MEDS: DEXTROSE 50%-WATER INJ 50 ML SYRINGE IV (23:07)
[2024-04-17] MEDS: INSULIN HUM REGULAR 1 UNIT/0.01 ML (PER UNIT) 5 UNIT IV (23:07)
--- NOTE | 2024-04-17 23:08 | XR_ITS ---
Examination: AP chest single view Technique: AP portable upright chest single view Exam date and time: April 17, 2024 11:24 PM Comparison April 06, 2024 Indications: Post central line placement. Findings: Right apical pneumothorax, estimated 50% No shift of the heart or mediastinum to the left Right internal jugular central line tip right atrium Trace pneumomediastinum Orogastric tube in the stomach Massive pneumoperitoneum Impression: Right apical pneumothorax, estimated 50% Right internal jugular central line tip right atrium Minimal pneumomediastinum Massive pneumoperitoneum
--- NOTE | 2024-04-17 23:19 | PC.NURSE ---
[facility] CONTACTED SINCE NOTES WERE FOUND THAT PATIENT WAS POSSIBLE ALREADY A PATIENT OF THEIRS AND AFTER BEING ON HOLD FOR OVER AN HOUR AND A HALF I WAS ABLE TO SPEAK TO JAQUELINE WHO STATES PATIENT HAS NEVER BEEN TO [facility] AND TO TRY [facility]
[2024-04-17] MEDS: CALCIUM GLUC/NS 1000MG IVPB 1,000 MG/50 ML BAG 50 MG IV (23:20)
[2024-04-18] VITALS (17 sets, daily range): BP systolic 93–141; BP diastolic 60–98; PULSE 0–136; RESP 16–28; O2SAT 77–87
[2024-04-18] MEDS: LIDOCAINE HCL 1% 20 ML VIAL INFL (00:22)
[2024-04-18 00:37] LABS: Reflex Lactate? Y
--- NOTE | 2024-04-18 00:46 | PC.NURSE ---
code blue called
--- NOTE | 2024-04-18 03:58 | PC.NURSE ---
S/T family of patient who chose [facility] for their mortuary. [facility] notified and awaiting ETA for pick of the pt.
== END 2024-04-18 05:42 | disposition expired ==
PROVIDERS: Emergency Medicine; Emergency Provider Emergency Medicine
DX: A41.9 Sepsis, unspecified organism (principal); K56.609 Unspecified intestinal obstruction, unspecified as to partial versus complete obstruction; K63.1 Perforation of intestine (nontraumatic); R06.03 Acute respiratory distress; J93.9 Pneumothorax, unspecified; R00.0 Tachycardia, unspecified; I49.3 Ventricular premature depolarization; H91.90 Unspecified hearing loss, unspecified ear
CPT/HCPCS: 36556; 51702; 36415; 71045; 74176; 80053; 81001; 82150; 83605; 83690; 83735; 84145; 85014; 85018; 85025; 85652; 86140; 86850; 86900; 86901; 86923; 86927; 87040; 92950; 93005; 96361; 96365; 96366; 96367; 99291; 99292; J0171; J0282; J0613; J1815; J1885; J2060; J2270; J2354; J2405; J2470; J2543; J3010; J3490; J7030; J7050; P9016; P9060